=== PATIENT | male | born 1955 | race Caucasian/White ===

== ENCOUNTER → 2018-07-06 07:44 | Outpatient (CLI) | payer OTHER, SELFPAY ==
[2018-07-06 09:31] LABS: Alanine Aminotransferase 52 IU/L (21-72); Albumin 4.1 g/dL (3.5-5.0); Albumin Globulin Ratio 1.4 (1.0-2.8); Alkaline Phosphatase 90 U/L (38-126); Aspartate Aminotransferase 17 IU/L (17-59); BUN Creatinine Ratio 16.7 (6-22); Bilirubin Total 0.6 mg/dL (0.2-1.3); Blood Urea Nitrogen 15 mg/dL (9-20); Carbon Dioxide 30 mmol/L (22-32); Chloride 103 mmol/L (98-107); Cholesterol 147 mg/dL (140-199); Estimated Glomerular Filt Rate > 60.0 mL/min (>60); Glucose 127 mg/dL (80-110); HDL Cholesterol 42 mg/dL (40-60); HEMOLYSIS < 15 (0-50); LDL Cholesterol Calculated 91 mg/dL (<100); Potassium 4.1 mmol/L (3.4-5.1); Sodium 143 mmol/L (137-145); Total Protein 7.1 g/dL (6.3-8.2); Triglycerides 70 mg/dL (35-150)
[2018-07-06 09:36] LABS: Add Manual Diff / Slide Review NO; Basophils Percent Auto 1.1 % (0-2); Eosinophils Percent Auto 5.4 % (2-4); Hematocrit 45.7 % (41-53); Hemoglobin 15.6 g/dL (13.5-17.5); Lymphocytes Percent Auto 31.7 % (25-40); Mean Corpuscular HGB Conc 34.2 % (30-36); Mean Corpuscular Hemoglobin 31.4 PG (26-34); Mean Corpuscular Volume 91.8 fL (80-100); Monocytes Percent Auto 8.8 % (3-14); Neutrophils Absolute Auto 3400 /uL (3000-5900); Platelet Count 190 X10^3/uL (150-400); Red Blood Cell Count 4.98 X10^6/uL (4.5-5.9); Red Cell Distribution Width 13.5 % (11.6-14.8); White Blood Cell Count 6.3 X10^3/uL (4.5-11.0)
[2018-07-06 09:55] LABS: Prostate Specific Antigen Scrn 0.945 ng/mL (0.1-4.0)
[2018-07-06 09:58] LABS: Thyroid Stimulating Hormone 3.16 uIU/mL (0.47-4.68)
== END ==
PROVIDERS: Family Provider Family Medicine; PCP Family Medicine; Visit Provider Family Medicine
DX: E78.5 Hyperlipidemia, unspecified (principal); Z00.00 Encounter for general adult medical examination without abnormal findings; Z12.5 Encounter for screening for malignant neoplasm of prostate
CPT/HCPCS: 36415; 80053; 80061; 84443; 85025; G0103

== ENCOUNTER → 2018-12-23 16:07 | Outpatient (REF) | payer OTHER, SELFPAY | LOC: LAB 16:07 | PROVIDERS: Family Provider Family Medicine; PCP Family Medicine; Visit Provider Internal Medicine | DX: R05 Cough (principal); R52 Pain, unspecified | CPT/HCPCS: 87400 ==

== ENCOUNTER → 2020-06-08 09:11 | Outpatient (CLI) | payer OTHER, SELFPAY ==
[2020-06-09 09:43] LABS: COVID19 Sendout Not Detected (Not Detect)
== END ==
PROVIDERS: Family Provider Family Medicine; PCP Family Medicine; Visit Provider Nurse Practitioner
DX: Z11.59 Encounter for screening for other viral diseases (principal)
CPT/HCPCS: 87635

== ENCOUNTER 2020-06-11 11:58 | Day surgery (SDC) | payer OTHER, SELFPAY ==
[2020-06-11] VITALS (8 sets, daily range): BP systolic 97–127; BP diastolic 63–80; PULSE 62–79; RESP 12–20; TEMP 36.6–36.9; O2SAT 93–97; BMI 30.5
--- NOTE | 2020-06-11 11:25 | PM.PREOP ---
Pre-operative Note COVID-19 COVID-19 status: Negative Result date/Date tested (Pos, Neg/Pending): 06/08/20 Interval Note History & Physical reviewed/Exam performed by Physician: Yes Changes to H&P: No ASA Class (for procedural sedation): II
--- NOTE | 2020-06-11 11:27 | PM.OP.ENDO ---
Operative Date/Time/Diagnoses Date of procedure: 06/11/20 Procedure Notes Procedure in detail: ENDOSCOPIST: Lois Rouse MD Sedation RN: Mary Parikh RN Sedation start time: 1:02 p.m. Sedation end time: 1:17 p.m. PROCEDURE: Colonoscopy INDICATIONS: 1. History of colon polyps 2. Screening for colon cancer MEDICATION: Levsin 0.125 mg sublingual, incremental doses of Versed and fentanyl until appropriate level sedation achieved. ASA CLASS: 2 CECAL WITHDRAWAL TIME: 6 minutes COMPLICATIONS: None. EXTENT OF PROCEDURE: Cecum. QUALITY OF PREP: Good with portions of liquid stool. PROCEDURE: Prior to insertion of the colonoscope, a digital rectal examination was accomplished with circumferential palpation of the distal rectal mucosa without significant findings being noted. The high-definition colonoscope was passed into the rectum in the usual fashion and advanced over to the cecum without difficulty. The ileocecal valve, appendiceal stoma, and medial wall all could be inspected and no abnormalities were seen. ASCENDING COLON: As the colonoscope was withdrawn, care was taken to expose and inspect the haustral folds and no abnormalities were seen. HEPATIC FLEXURE: Normal, no polyps, diverticula or other abnormalities. TRANSVERSE COLON: Normal, no polyps, diverticula or other abnormalities. DESCENDING COLON: Normal, no polyps, diverticula or other abnormalities. SIGMOID COLON: Minor diverticulosis, otherwise, normal, no polyps or other abnormalities. RECTUM: Normal. J maneuver was produced. There was no significant perianal disease. The J maneuver was broken. The remainder of the rectum was inspected and there was no external hemorrhoid disease. The scope was withdrawn. IMPRESSION: 1. Normal colonoscopy 2. Diverticulosis, sigmoid, minor PLAN: 1. Repeat colonoscopy in 10 years. The possibility of a missed lesion including a malignancy has been discussed with the patient previously. Potential alarm symptoms have been discussed and should be reported immediately.
[2020-06-11] MEDS: LACTATED RINGERS 1,000 ML 200 ML IV (12:15)
[2020-06-11] MEDS: HYOSCYAMINE 0.125 MG TABLET PO (12:15)
[2020-06-11] MEDS: MIDAZOLAM 5 MG/5 ML VIAL IV (13:02)
[2020-06-11] MEDS: fentaNYL 250 MCG/5 ML INJ IV (13:02)
--- NOTE | 2020-06-11 13:39 | SUR.PHASEII ---
Patient tolerating po. Denies pain and nausea.
== END 2020-06-11 14:08 | disposition home or self-care (01) ==
PROVIDERS: Family Provider Family Medicine; PCP Family Medicine; Referring Provider Family Medicine; Visit Provider Student in an Organized Health Care Education/Training Program
PROC: 0DJD8ZZ Inspection of Lower Intestinal Tract, Via Natural or Artificial Opening Endoscopic (ICD-10-PCS; CPT 45378; principal; 2020-06-11 13:00)
DX: Z12.11 Encounter for screening for malignant neoplasm of colon (principal); Z86.010 Personal history of colon polyps; K57.30 Diverticulosis of large intestine without perforation or abscess without bleeding
CPT/HCPCS: 45378; J2250; J3010

== ENCOUNTER → 2024-11-07 14:29 | Outpatient (CLI) | payer OTHER, SELFPAY ==
--- NOTE | 2024-11-07 14:34 | DI.RAD.S_ITS ---
PROCEDURE: XR ANKLE LT MIN 3V INDICATIONS: BILATERAL ANKLE PAIN TECHNIQUE: 3 views of the ankle were acquired. COMPARISON: None. FINDINGS: Bones: No fractures or dislocations. Ankle mortise is normally aligned. No suspicious bony lesions. Soft tissues: No tibiotalar joint effusion. Achilles tendon appears normal. IMPRESSION: No acute bony abnormality or significant effusion. Dictated by: Osmani Sandoval M.D. on 11/07/2024 at 16:22 Approved by: Osmani Sandoval M.D. on 11/07/2024 at 16:23
--- NOTE | 2024-11-07 14:34 | DI.RAD.S_ITS ---
PROCEDURE: XR ANKLE RT MIN 3V INDICATIONS: BILATERAL ANKLE PAIN TECHNIQUE: 3 views of the ankle were acquired. COMPARISON: None. FINDINGS: Bones: No fractures or dislocations. Ankle mortise is normally aligned. No suspicious bony lesions. Soft tissues: No tibiotalar joint effusion. Achilles tendon appears normal. IMPRESSION: No acute bony abnormality or significant effusion. Dictated by: Osmani Sandoval M.D. on 11/07/2024 at 16:22 Approved by: Osmani Sandoval M.D. on 11/07/2024 at 16:22
== END ==
PROVIDERS: Family Provider Family Medicine; PCP Family Medicine; Referring Provider Family Medicine; Visit Provider Family Medicine
DX: M25.571 Pain in right ankle and joints of right foot (principal); G89.29 Other chronic pain; M25.572 Pain in left ankle and joints of left foot
CPT/HCPCS: 73610

== ENCOUNTER → 2025-10-02 06:51 | Outpatient (CLI) | payer MEDICARE, SELFPAY ==
--- NOTE | 2025-10-02 06:56 | DI.ECHO.S_ITS ---
[facility]+ [facility] : : [address] : : [place] : : [id number] : : Phone: [phone] Echocardiogram Report + + :Name: MONICA RAMON Study Date: 10/02/2025 Height: 67 in : :Hospital ReadingLocation: Weight: 195 lb : : Gender: Male BSA: 2.0 m2 : :: 1955 Age: 70 yrs BP: 139/87 mmHg: :Reason For Study: Murmur : :Ordering Physician: RANDY, : :LALITA Performed By: Jax Gamez : :Referring: LALITA PADILLA : + + Interpretation Summary Normal biventricular size and systolic function. LVEF is 60 to 65%. Normal atrial sizes. No significant valvular dysfunction is noted. Other findings as below. Procedure: A two-dimensional transthoracic echocardiogram with color flow and Doppler was performed. The study quality was technically adequate. Comparison is made with the echocardiogram of 09/28/2016. The patient was in normal sinus rhythm during the exam. Left Ventricle: The left ventricle is normal in size and wall thickness. Left ventricular systolic function is normal. The ejection fraction is estimated to be 60-65%. There are no focal wall motion abnormalities. Grade I diastolic dysfunction with normal left atrial pressure. Right Ventricle: The right ventricle is normal in size and function. Atria: The left atrial size is normal. Right atrial size is normal. There is no Doppler evidence for an interatrial shunt. Mitral Valve: The mitral valve leaflets appear to open well. There is no evidence of mitral valve prolapse. There is no mitral valve stenosis. There is trace mitral regurgitation. Aortic Valve: The aortic valve is trileaflet. The aortic valve opens well. There is no aortic valve stenosis. No aortic regurgitation is present. Tricuspid Valve: The tricuspid valve leaflets are thin and pliable. There is mild tricuspid regurgitation. The right ventricular systolic pressure is estimated to be at least 25 mmHg based on an estimated right atrial pressure of 3 mm Hg. Pulmonic Valve: The pulmonic valve leaflets are thin and pliable; valve motion is normal. There is a trace or physiologic amount of pulmonic regurgitation. Great Vessels: The aortic root is normal size. The ascending aorta is normal in size. The aortic arch could not be visualized. The pulmonary artery is normal size. The IVC is of normal diameter and collapses greater than 50% with a sniff. This suggests a low right atrial pressure of 3 mm Hg. Pericardium/ Pleura There is no pericardial effusion. MMode/2D Measurements & Calculations LVIDd: 4.3 cm LVOT diam: 2.0 cm LVIDs: 2.8 cm Ao root diam: 3.1 cm FS: 34.4 % asc Aorta Diam: 3.7 cm IVSd: 0.94 cm LVPWd: 0.94 cm LV velasquez. diameter/BSA (cm/m^2): 2.1 LV sys. diameter/BSA (cm/m^2): 1.4 LA A2 area: 17.5 cm2 IVC diam: 1.9 cm LA A4 area: 16.4 cm2 LA length (vol): 5.7 cm LA vol: 42.7 ml LA vol index: 21.3 ml/m2 RVD1 (basal): 3.1 cm RVD2 (mid): 2.8 cm TAPSE: 2.6 cm Doppler Measurements & Calculations Ao V2 max: 117.7 cm/sec LVOT Max Omid: 98.2 cm/sec Ao V2 mean: 86.9 cm/sec LV V1 max P.9 mmHg Ao max P.5 mmHg LV V1 VTI: 20.9 cm Ao mean P.4 mmHg FEMI(I,D): 2.6 cm2 Ao V2 VTI: 25.1 cm FEMI(V,D): 2.6 cm2 sev ratio: 0.83 FEMI indexed to BSA (cm^2/m^2): 1.3 MV E max omid: 78.2 cm/sec TR max omdi: 231.5 cm/sec MV A max omid: 98.5 cm/sec TR max P.5 mmHg MV E/A: 0.79 PA V2 max: 109.1 cm/sec Med Peak E' Omid: 7.0 cm/sec PA V2 mean: 71.2 cm/sec E/E' med: 11.2 PA mean P.4 mmHg Lat Peak E' Omid: 8.7 cm/sec PA pr(Accel): 22.5 mmHg E/E' lat: 9.0 E/e' average: 10.1 MV dec time: 0.16 sec SV(LVOT): 64.3 ml Qp/Qs (V,Ao): 1.0/3.2 Qp/Qs (V,LVOT): 1.0/1.1 Reading Physician:02:33 PM
== END ==
PROVIDERS: Family Provider Family Medicine; PCP Family Medicine; Referring Provider Family Medicine; Visit Provider Family Medicine
DX: I07.1 Rheumatic tricuspid insufficiency (principal); R01.1 Cardiac murmur, unspecified
CPT/HCPCS: 93306